=== PATIENT | female | born 1970 | race Caucasian/White ===

== ENCOUNTER 2022-04-26 02:23 | Emergency (ER) | payer OTHER ==
[2022-04-26 02:38] VITALS: BP 114/82; PULSE 72; TEMP 97.7; BMI 23.9
[2022-04-26] MEDS ORDERED: MAG HYDROX/AL HYDROX/SIMETH -MYLANTA- ORAL SUSPENSION PO ONE (02:46)
[2022-04-26] MEDS ORDERED: MAG HYDROX/AL HYDROX/SIMETH 30 ML UNIT-DOSE CUP ONE (03:03)
[2022-04-26 04:15] LABS: BASO % 0.2 % (0-2.0); EOS % 10.7 % (0-4.5); HEMATOCRIT 36.7 % (32.4-45.2); HEMOGLOBIN 12.3 GM/dL (10.7-15.3); LYMPH % 29.1 % (8-40); MCH 28.7 pg (25.7-33.7); MCHC 33.5 g/dl (32.0-36.0); MEAN CELL VOLUME 85.8 fl (80-96); MEAN PLT VOLUME 9.9 fl (7.5-11.1); MONO % 9.7 % (3.8-10.2); NEUT % 50.3 % (42.8-82.8); PLATELET COUNT 186 10^3/uL (134-434); RBC 4.28 M/mm3 (3.60-5.2); RDW 14.4 % (11.6-15.6); WHITE BLOOD COUNT 6.3 K/mm3 (4.0-10.0)
[2022-04-26 04:33] LABS: CALCIUM 8.4 mg/dL (8.5-10.1)
[2022-04-26 04:34] LABS: ALBUMIN 3.6 g/dl (3.4-5.0); BLOOD UREA NITROGEN 9.4 mg/dL (7-18)
[2022-04-26 04:37] LABS: CREATININE 0.6 mg/dL (0.55-1.3)
[2022-04-26 04:38] LABS: TOT PROT 6.5 g/dl (6.4-8.2)
[2022-04-26 04:39] LABS: BILIRUBIN,TOTAL 0.2 mg/dL (0.2-1)
== END 2022-04-26 04:55 | disposition home or self-care (01) ==
LOC: FER 02:23
DX: B02.9 Zoster without complications (principal); R07.9 Chest pain, unspecified
CPT/HCPCS: 36415; 80053; 83690; 84484; 85025; 93005; 99284-25